=== PATIENT | male | born 1935 | race Caucasian/White ===

== ENCOUNTER 2017-05-10 08:51 | Day surgery (SDC) | payer MEDICARE ==
[~2017-05-10] VITALS: Ht 157.5 cm; Wt 47.6 kg
[~2017-05-10 08:51] MED LIST: ASPIRIN 8181 MG PO; DILANTIN100 MG PO; HYDROCO/APAP1 TA9 PO; METOPROL TAR25 MG PO; MEVACOR40 MG PO; NITROSTAT0.4 MG SL; OMEPRAZOLE10 MG PO
[2017-05-10 10:56] LABS: HEMATOCRIT 40.4 % (39.0-50.0); HEMOGLOBIN 14.1 g/dl (14.0-18.0); IMMATURE GRANULOCYTES 0.6 % (0.0-1.0); MEAN CELL VOLUME 97.8 fL CALC (80.0-100.0); MEAN CORPUSCULAR HGB 34.1 pG CALC (26.0-32.0); MEAN CORPUSCULAR HGB CONC 34.9 g/L CALC (32.0-36.0); NEUT# 5.36 thou/uL (1.82-7.42); RED BLOOD COUNT 4.13 mill/uL (4.70-6.10); RED CELL DISTRI WIDTH 13.5 % (11.5-15.5)
[2017-05-10 11:11] LABS: ALBUMIN 3.9 g/dL (3.2-5.0); ALKALINE PHOSPHATASE 103 u/l (38-126); ANION GAP 11 (6-22 (CALC)); BILIRUBIN, TOTAL 0.6 mg/dL (0.0-1.4); BUN 9 mg/dL (8-23); BUN/CREATININE RATIO 12 (12-20 (CALC)); CALCIUM 9.1 mg/dL (8.4-10.2); CARBON DIOXIDE 31 mmol/l (22-30); CHLORIDE 100 mmol/l (95-108); CREATININE 0.7 mg/dL (0.7-1.3); GFR > 60 ML/MIN (>=60 (CALC)); GFR FOR AFR.AMER. > 60 ML/MIN (>=60 (CALC)); GLUCOSE 89 mg/dL (82-115); POTASSIUM 4.7 mmol/l (3.5-5.1); SGOT/AST 20 u/l (19-48); SGPT/ALT 26 u/l (11-66); SODIUM 138 mmol/l (137-146); TOTAL PROTEIN 6.6 g/dL (6.3-8.2)
[2017-05-10 14:18] VITALS: BP 176/74
== END 2017-05-10 14:00 | disposition home or self-care (01) ==
LOC: ENDO 08:51 → ORM 08:51
PROVIDERS: ATTEND Internal Medicine Gastroenterology
PROC: 0DB68ZX Excision of Stomach, Via Natural or Artificial Opening Endoscopic, Diagnostic (ICD-10-PCS; principal; 2017-05-10)
DX: K21.9 Gastro-esophageal reflux disease without esophagitis (principal); R63.4 Abnormal weight loss; R93.8 Abnormal findings on diagnostic imaging of other specified body structures; K31.7 Polyp of stomach and duodenum; K44.9 Diaphragmatic hernia without obstruction or gangrene; K29.70 Gastritis, unspecified, without bleeding; K31.9 Disease of stomach and duodenum, unspecified; Q40.2 Other specified congenital malformations of stomach; G40.909 Epilepsy, unspecified, not intractable, without status epilepticus; I10 Essential (primary) hypertension

== ENCOUNTER 2017-12-23 11:47 | Emergency (ER) | payer MEDICARE ==
[~2017-12-23] VITALS: Ht 157.5 cm; Wt 48.6 kg
[2017-12-23 12:49] VITALS: BP 156/62
== END 2017-12-23 12:55 | disposition home or self-care (01) ==
LOC: ED 11:47
DX: S10.11XA Abrasion of throat, initial encounter (principal); X58.XXXA Exposure to other specified factors, initial encounter; Y93.89 Activity, other specified; Y92.009 Unspecified place in unspecified non-institutional (private) residence as the place of occurrence of the external cause; F17.210 Nicotine dependence, cigarettes, uncomplicated

== ENCOUNTER 2018-06-01 21:51 | Emergency (ER) | payer MEDICARE ==
[~2018-06-01] VITALS: Ht 157.5 cm; Wt 45.0 kg
[2018-06-01 22:24] LABS: HEMATOCRIT 43.9 % (39.0-50.0); HEMOGLOBIN 14.7 g/dl (14.0-18.0); IMMATURE GRANULOCYTES 0.7 % (0.0-5.0); MEAN CELL VOLUME 99.5 fL CALC (80.0-100.0); MEAN CORPUSCULAR HGB 33.3 pG CALC (26.0-32.0); MEAN CORPUSCULAR HGB CONC 33.5 g/L CALC (32.0-36.0); NEUT# 9.27 thou/uL (1.82-7.42); RED BLOOD COUNT 4.41 mill/uL (4.70-6.10); RED CELL DISTRI WIDTH 13.6 % (11.5-15.5)
[2018-06-01 22:28] LABS: ALBUMIN 4.2 g/dL (3.2-5.0); ALKALINE PHOSPHATASE 99 u/l (38-126); BILIRUBIN, TOTAL 0.3 mg/dL (0.0-1.4); BUN 10 mg/dL (8-23); BUN/CREATININE RATIO 12 (12-20 (CALC)); CARBON DIOXIDE 23 mmol/l (22-30); CHLORIDE 104 mmol/l (95-108); CREATININE 0.8 mg/dL (0.7-1.3); GFR > 60 ML/MIN (>=60 (CALC)); GFR FOR AFR.AMER. > 60 ML/MIN (>=60 (CALC)); SGOT/AST 25 u/l (19-48); SODIUM 143 mmol/l (137-146)
[2018-06-01 22:34] LABS: ANION GAP 20 (6-22 (CALC)); POTASSIUM 3.7 mmol/l (3.5-5.1)
[2018-06-01 22:36] LABS: ACT PARTIAL THROMBO TIME 26.4 SECONDS (20.0-32.5); INTERNATIONAL NORMALIZED RATIO 1.1 RATIO (0.7-1.3); PROTHROMBIN TIME 11.3 SECONDS (9.0-12.5)
[2018-06-01 22:42] LABS: MYOGLOBIN 104 ng/mL (0 - 121)
[2018-06-01 23:31] LABS: URINE BILIRUBIN - DIPSTICK NEGATIVE (NEGATIVE); URINE BLOOD DIPSTICK MODERATE (NEGATIVE); URINE COLOR YELLOW; URINE GLUCOSE - DIPSTICK 100 mg/dL (NEGATIVE); URINE KETONE NEGATIVE (NEGATIVE); URINE LEUK ESTERASE NEGATIVE (NEGATIVE); URINE NITRITE - DIPSTICK NEGATIVE (Negative); URINE PROTEIN - DIPSTICK 30 mg/dL (NEG-TRACE); URINE SPECIFIC GRAVITY 1.025; URINE UROBILINOGEN - DIPSTICK 0.2 E.U./dL (0.2)
[2018-06-01 23:35] LABS: URINE CLARITY CLEAR
[2018-06-01 23:38] LABS: PHENYTOIN (DILANTIN) 5 ug/mL (10 - 20)
[2018-06-01 23:46] LABS: URINE BACTERIA FEW hpf; URINE MUCUS FEW hpf (NONE-FEW); URINE SQUAMOUS EPITHELIAL CELL RARE EPI/hpf (0-FEW)
[2018-06-02 00:05] VITALS: BP 175/67
== END 2018-06-02 00:05 | disposition short-term general hospital (02) ==
LOC: ED 21:51
PROVIDERS: Emergency Medicine
PROC: 0BH17EZ Insertion of Endotracheal Airway into Trachea, Via Natural or Artificial Opening (ICD-10-PCS; principal; 2018-06-01)
DX: G40.909 Epilepsy, unspecified, not intractable, without status epilepticus (principal); J96.90 Respiratory failure, unspecified, unspecified whether with hypoxia or hypercapnia; I10 Essential (primary) hypertension; F17.200 Nicotine dependence, unspecified, uncomplicated
CPT/HCPCS: J1953; J2060

== ENCOUNTER 2019-09-25 16:52 | Observation (INO) | payer MEDICARE ==
[~2019-09-25] VITALS: Ht 152.4 cm; Wt 49.6 kg
--- NOTE | 2019-09-25 16:52 | NUR ---
PT TO ROOM VIA WHEELCHAIR.
--- NOTE | 2019-09-25 18:00 | NUR ---
PT RESTING OFFERS NO NEW COMPLAINTS, FAMILY MEMBER INTERMITTENLY AT BEDSIDE. PT IS ADMITTED SMOKER AND STATES PAIN HAS BEEN SINCE YESTERDAY WITH DEEP INSPIRATION ALSO STATES HE HAS UNEXPLAINED WEIGHT LOSS IN RECENT PAST. COMFORT MEASURES PROVIDED AND CALL ARREDONDO WITHIN REACH
[2019-09-25 18:05] LABS: HEMATOCRIT 40.7 % (39.0-50.0); HEMOGLOBIN 14.1 g/dl (14.0-18.0); IMMATURE GRANULOCYTES 0.8 % (0.0-5.0); MEAN CELL VOLUME 95.3 fL CALC (80.0-100.0); MEAN CORPUSCULAR HGB CONC 34.6 g/L CALC (32.0-36.0); NEUT# 6.12 thou/uL (1.82-7.42); RED BLOOD COUNT 4.27 mill/uL (4.70-6.10); RED CELL DISTRI WIDTH 14.3 % (11.5-15.5)
[2019-09-25 18:24] LABS: ACT PARTIAL THROMBO TIME 28.8 SECONDS (20.0-32.5); INTERNATIONAL NORMALIZED RATIO 1.1 RATIO (0.7-1.3)
[2019-09-25 18:26] LABS: ALBUMIN 4.1 g/dL (3.2-5.0); ALKALINE PHOSPHATASE 109 u/l (38-126); BUN 14 mg/dL (8-23); BUN/CREATININE RATIO 17 (12-20 (CALC)); CHLORIDE 99 mmol/l (95-108); CREATININE 0.8 mg/dL (0.7-1.3); GFR > 60 ML/MIN (>=60 (CALC)); GFR FOR AFR.AMER. > 60 ML/MIN (>=60 (CALC)); POTASSIUM 4.1 mmol/l (3.5-5.1); SGOT/AST 20 u/l (19-48); TOTAL PROTEIN 6.9 g/dL (6.3-8.2)
[2019-09-25 18:31] LABS: ANION GAP 9 (6-22 (CALC)); BILIRUBIN, TOTAL 0.6 mg/dL (0.0-1.4); CARBON DIOXIDE 31 mmol/l (22-30); SODIUM 135 mmol/l (137-146)
--- NOTE | 2019-09-25 18:45 | NUR ---
PT AWARE OF PLANNED ADMISSION
[2019-09-25] MEDS ORDERED: LOPRESSOR 550 MG/TAB PO (19:12)
--- NOTE | 2019-09-25 20:57 | NUR ---
PT STATES HAVING NO CHEST PAIN AT THIS TIME UNLESS HE TAKES A DEEP 8REATH. PT O2 SAT IS 96% ON ROOM AIR. PT STATES FEELING LIKE SOMEONE IS SITTING ON HIS CHEST WHEN HE ARRIVED AND INTERMITTENTLY. PT HAS SINUS 8RADY AT THIS TIME MJohn NOTIFIED.
--- NOTE | 2019-09-25 22:11 | NUR ---
PT ARRIVED TO THE FLOOR VIA STRETCHER ACCOMPANIED BY ED STAFF. PT ALERT AND ORIENTED, PT TRANSFERED FROM STRETCHER TO BED. PT ORIENTED TO ROOM AND CALL [facility]ON[facility] SYSTEM. VITAL SIGNS OBTAINED AND ASSESSMENT COMPLETED. RESPIRATIONS EVEN AND UNLABORED ON RA. LUNGS SOUND DIMINISHED. PEDAL PULSES ARE WEAK. PT DENIES ANY PAIN OR DISCOMFORT AT THIS TIME. TELE IN PLACE. CALL ARREDONDO WITHIN REACH. WILL CONTINUE TO MONITOR.
--- NOTE | 2019-09-25 22:11 | NUR ---
REPORT GIVEN TO MICHELL RN, PT TRANSPORTED TO ROOM 261. PT ADMITTED ALL VS WNL
[2019-09-25 22:30] VITALS: BP 163/64
[2019-09-25 23:37] VITALS: BP 126/68
--- NOTE | 2019-09-26 00:37 | NUR ---
PT RESTING IN BED. RESPIRATIONS EVEN AND UNLABORED ON RA. TELE IN PLACE. WILL CONTINUE TO MONITOR.
[2019-09-26 03:51] VITALS: BP 119/50
--- NOTE | 2019-09-26 03:53 | NUR ---
PT RESTING IN BED RESPIRATIONS EVEN AND UNLABORED ON RA. TELE IN PLACE. WILL CONTINUE TO MONITOR.
[2019-09-26 06:13] LABS: MAGNESIUM 1.6 mg/dL (1.6-2.3)
--- NOTE | 2019-09-26 07:17 | NUR ---
0717-Pt lying in bed with eyes closed. No s/s of distress, denies pain. Pt ready to go home. Bed low and locked. Call light and phone within reach. Pt stable, will continue to monitor.
[2019-09-26 07:47] VITALS: BP 139/54
[2019-09-26 11:02] VITALS: BP 155/68
== END 2019-09-26 13:30 | disposition home or self-care (01) ==
LOC: ED 16:52 → ED-I 18:50 → ED 19:07 → ED-I 19:08 → MS2 19:38
PROVIDERS: Emergency Medicine; ADMIT Internal Medicine; ATTEND Internal Medicine
DX: R07.9 Chest pain, unspecified (principal); I10 Essential (primary) hypertension; I25.10 Atherosclerotic heart disease of native coronary artery without angina pectoris; J44.9 Chronic obstructive pulmonary disease, unspecified; G40.909 Epilepsy, unspecified, not intractable, without status epilepticus; E78.5 Hyperlipidemia, unspecified; F17.210 Nicotine dependence, cigarettes, uncomplicated; I25.2 Old myocardial infarction; Z95.5 Presence of coronary angioplasty implant and graft; Z95.1 Presence of aortocoronary bypass graft; R06.02 Shortness of breath
CPT/HCPCS: G0378

== ENCOUNTER 2019-11-12 18:47 | Inpatient (IN) | payer MEDICARE ==
[~2019-11-12] VITALS: Ht 165.1 cm; Wt 45.0 kg
[~2019-11-12 18:47] MED LIST changes: +LOPRESSOR 550 MG/TAB PO
--- NOTE | 2019-11-12 19:15 | NUR ---
A/OX3 FRAIL M WITH REPORTED WEAKNESS LOSS OF APPETITE,FALLS MORE FREQUENT-
[2019-11-12 19:56] LABS: HEMATOCRIT 38.7 % (39.0-50.0); HEMOGLOBIN 13.6 g/dl (14.0-18.0); IMMATURE GRANULOCYTES 0.7 % (0.0-5.0); MEAN CELL VOLUME 96.5 fL CALC (80.0-100.0); MEAN CORPUSCULAR HGB 33.9 pG CALC (26.0-32.0); MEAN CORPUSCULAR HGB CONC 35.1 g/dL CAL (32.0-36.0); NEUT# 4.4 thou/uL (1.82-7.42); RED BLOOD COUNT 4.01 mill/uL (4.70-6.10); RED CELL DISTRI WIDTH 14.1 % (11.5-15.5)
[2019-11-12 20:42] LABS: ALBUMIN 3.9 g/dL (3.2-5.0); ALKALINE PHOSPHATASE 129 u/l (38-126); ANION GAP 8 (6-22 (CALC)); BILIRUBIN, TOTAL 0.5 mg/dL (0.0-1.4); BUN 13 mg/dL (8-23); BUN/CREATININE RATIO 15 (12-20 (CALC)); CARBON DIOXIDE 31 mmol/l (22-30); CHLORIDE 98 mmol/l (95-108); CREATININE 0.9 mg/dL (0.7-1.3); GFR > 60 ML/MIN (>=60 (CALC)); GFR FOR AFR.AMER. > 60 ML/MIN (>=60 (CALC)); POTASSIUM 4.1 mmol/l (3.5-5.1); SGOT/AST 18 u/l (19-48); SODIUM 133 mmol/l (137-146); TOTAL PROTEIN 6.7 g/dL (6.3-8.2)
--- NOTE | 2019-11-12 20:53 | NUR ---
A/OX3 NO FOCAL DEFOICIS SB NO ECTOPYU NO ST T CHANGES.NO PAIN OF ANY ORIGIN-
--- NOTE | 2019-11-12 21:15 | NUR ---
PT ASKS FOR AAND USES URINAL CLEAR YELLOWW URINE 200CC SPEC TO LAB A/OX3 GCS IS 15 SPEECH IS CLEAR
[2019-11-12 21:31] LABS: URINE BILIRUBIN - DIPSTICK NEGATIVE (NEGATIVE); URINE BLOOD DIPSTICK NEGATIVE (NEGATIVE); URINE COLOR YELLOW; URINE GLUCOSE - DIPSTICK NEGATIVE (NEGATIVE); URINE KETONE NEGATIVE (NEGATIVE); URINE LEUK ESTERASE NEGATIVE (NEGATIVE); URINE NITRITE - DIPSTICK NEGATIVE (Negative); URINE PH 6.5 (4.5-8.0); URINE PROTEIN - DIPSTICK NEGATIVE (NEG-TRACE); URINE UROBILINOGEN - DIPSTICK 0.2 E.U./dL (0.2)
--- NOTE | 2019-11-12 22:00 | NUR ---
A/X3 SPEECH CLEAR GCS 15 NO FOCAL DEFICITS W/P/D SKIN SB THIS ER VISIT DENIES PAIN OF ANY ORIGIN
--- NOTE | 2019-11-12 22:01 | NUR ---
PHONE REPORT KULWINDER DENIS ON [facility]
--- NOTE | 2019-11-12 22:04 | NUR ---
PT TRAANSPORTED TO [facility] RM 262 VIA STRETCHER IN STABLE CONDITION
--- NOTE | 2019-11-12 22:05 | NUR ---
PT RECEIVED FROM E.R VIA STRETCHER ACCOMPANIED BY STAFF. ASSISTED IN TO BED. GAIT IS STEADY WITH ONE ASSIST. PT IS ALERT AND ORIENTED X3. SKIN WARM AND DRY. FEW SCABBED AREAS NOTED ON LEFT HAND. SKIN INTACT. DISCOLORATION NOTED TO BILAT FOREARM AND HANDS. RESP EVEN AND UNLABORED. O2 N/C ON AT 2L. LUNGS REVEAL DIMINISHED BREATH SOUNDS PRESENT. ABD SOFT WITH BOWEL SOUNDS PRESENT. NO LOWER EXT EDEMA NOTED. PEDAL PULSES PALPATED BILAT. ELLEN HOSE APPLIED. HEPLOCK IS PATENT IN LAC. PT DENEIS ANY PAIN OR DISCOMFORT. URINAL AT BEDSIDE. PT ORIENTED TO ROOM AND CALL ARREDONDO. BED ALARM IS ON FOR PTS SAFETY. FREQUENT ROUNDS MADE. CALL ARREDONDO WITHIN REACH.
[2019-11-12 22:10] VITALS: BP 169/71
[2019-11-13 03:43] VITALS: BP 114/61
--- NOTE | 2019-11-13 04:23 | NUR ---
RESTING IN BED WITH EYES CLOSED. VSS. RESP EVEN AND UNLABORED. HEPLOCK IS PATENT. BED ALARM IS ON. URINAL AT BEDSIDE. FREQUENT ROUNDS MADE. CALL ARREDONDO WITHIN REACH .
--- NOTE | 2019-11-13 05:32 | NUR ---
RESTING IN BED WITH EYES CLOSED. NO DISTRESS NOTED . CALL ARREDONDO WITHIN REACH.
[2019-11-13 08:00] VITALS: BP 134/77
--- NOTE | 2019-11-13 09:00 | NUR ---
PT AWAKE, ALERT, ORIENTED X 3. LUNGS CLEAR, RA. PT STATES THAT HE IS WEAK, THAT EVERYONE SAYS IT IS RELATED TO NUTRITION. PT AWARE OF PHYSICAL THERAPY CONSULT.
--- NOTE | 2019-11-13 12:00 | NUR ---
PT SEEN BY DR OLIVA THIS MORNING, PHYSICAL THERAPY ORDERED. PT STATES THAT HE USES A WALKER AT HOME. NO CHANGE IN STATUS.
[2019-11-13 15:23] VITALS: BP 132/68
--- NOTE | 2019-11-13 17:28 | NUR ---
PHYSICAL THERAPY HAS BEEN IN ROOM TO ASSESS PT. PT REMAINS AT REST IN THE BED, NO DISTRESS.
--- NOTE | 2019-11-13 19:10 | NUR ---
REPORT FROM JASON CONTRERAS. PT SITTING UP IN BED. NO APPARENT DISTRESS NOTED. PT DENIES ANY PAIN OR DISCOMFORT. IV SITE APPEARS HEALTHY. PT HAS NO CURRENT WANTS OR NEEDS. CALL LIGHT WITHIN REACH. WILL CONTINUE TO MONITOR.
[2019-11-13 19:48] VITALS: BP 124/66
--- NOTE | 2019-11-13 22:47 | NUR ---
PT RESTING IN BED WITH EYES CLOSED. NO APPARENT DISTRESS NOTED. CALL LIGHT WITHIN REACH. WILL CONTINUE TO MONITOR.
--- NOTE | 2019-11-14 02:12 | NUR ---
PT RESTING IN BED WITH EYES CLOSED. NO APPARENT DISTRESS NOTED. CALL LIGHT WITHIN REACH. WILL CONTINUE TO MONITOR.
[2019-11-14 03:35] VITALS: BP 146/60
[2019-11-14 07:23] VITALS: BP 123/57
--- NOTE | 2019-11-14 09:00 | NUR ---
PT SEEN AWAKE, ALERT, ORIENTED X 3. PT DENIES PAIN OR DISTRESS. NO BM FOR 3 DAYS, TO CHECK ABOUT LAXATIVE. LUNGS WITH CRACKLES TO LOWER LEFT, OTHERWISE DIMINISHED, RA.
--- NOTE | 2019-11-14 13:00 | NUR ---
PT REMAINS BEFORE, NO DISTRESS, NO COMPLAINTS. PT SEEN BY DR GARCIA TODAY.
[2019-11-14 16:00] VITALS: BP 152/75
--- NOTE | 2019-11-14 16:03 | NUR ---
PT AT REST IN THE BED, NO DISTRESS, NO COMPLAINTS.
[2019-11-14 19:16] VITALS: BP 138/62
--- NOTE | 2019-11-14 23:40 | NUR ---
PT RESTING IN BED WITH EYES CLOSED. NO APPARENT DISTRESS NOTED. CALL LIGHT WITHIN REACH. WILL CONTINUE TO MONITOR.
[2019-11-15] VITALS: BP 116/66
--- NOTE | 2019-11-15 03:25 | NUR ---
PT RESTING IN BED WITH EYES CLOSED. NO APPARENT DISTRESS NOTED. CALL LIGHT WITHIN REACH. WILL CONTINUE TO MONITOR.
[2019-11-15 04:05] VITALS: BP 122/60
[2019-11-15 07:39] VITALS: BP 150/72
--- NOTE | 2019-11-15 08:38 | NUR ---
PT AWAKE, ALERT, ORIENTED X 3. LUNGS CLEAR THIS MORNING, RA. BM LAST NIGHT AFTER MIRALAX GIVEN YESTERDAY. NO DISTRESS, HOPES FOR DISCHARGE THIS AM.
[2019-11-15 08:44] VITALS: BP 150/72
[2019-11-15 10:58] LABS: HEMATOCRIT 41.4 % (39.0-50.0); HEMOGLOBIN 14.2 g/dl (14.0-18.0); IMMATURE GRANULOCYTES 0.9 % (0.0-5.0); MEAN CORPUSCULAR HGB 33.3 pG CALC (26.0-32.0); MEAN CORPUSCULAR HGB CONC 34.3 g/dL CAL (32.0-36.0); NEUT# 4.45 thou/uL (1.82-7.42); RED BLOOD COUNT 4.27 mill/uL (4.70-6.10); RED CELL DISTRI WIDTH 13.7 % (11.5-15.5)
[2019-11-15 11:20] LABS: ANION GAP 10 (6-22 (CALC)); BUN 18 mg/dL (8-23); BUN/CREATININE RATIO 20 (12-20 (CALC)); CARBON DIOXIDE 30 mmol/l (22-30); CHLORIDE 100 mmol/l (95-108); CREATININE 0.9 mg/dL (0.7-1.3); GFR > 60 ML/MIN (>=60 (CALC)); GFR FOR AFR.AMER. > 60 ML/MIN (>=60 (CALC)); SODIUM 136 mmol/l (137-146)
[2019-11-15] MEDS ORDERED: MIRTAZAPINE15 MG PO (12:38)
[2019-11-15] MEDS ORDERED: B121000 MCG PO (12:53)
--- NOTE | 2019-11-15 13:15 | NUR ---
PT HAS BEEN DISCHARGED TO HOME WITH HOME HEALTH/PHYSICAL THERAPY. PT VERBALIZED UNDERSTANDING OF DC INSTRUCTIONS, WAS PROVIDED WITH RXs X 2 AND COPY OF HOME HEALTH ORDER. PT WILL BE TAKEN TO LOBBY VIA WHEELCHAIR WHEN HIS ARRIVES. PT IN STABLE CONDITION.
== END 2019-11-15 13:50 | DRG 641 ==
LOC: ED 18:47 → ED-I 20:31 → ED 20:44 → MS2 20:45
PROVIDERS: Emergency Medicine; Nurse Practitioner Family; ADMIT Internal Medicine; ATTEND Internal Medicine
DX: E43 Unspecified severe protein-calorie malnutrition (principal); Z68.1 Body mass index [BMI] 19.9 or less, adult; E53.8 Deficiency of other specified B group vitamins; M62.50 Muscle wasting and atrophy, not elsewhere classified, unspecified site; I10 Essential (primary) hypertension; J44.9 Chronic obstructive pulmonary disease, unspecified; K59.00 Constipation, unspecified; I25.10 Atherosclerotic heart disease of native coronary artery without angina pectoris; G40.909 Epilepsy, unspecified, not intractable, without status epilepticus; E78.5 Hyperlipidemia, unspecified; M21.371 Foot drop, right foot; F17.200 Nicotine dependence, unspecified, uncomplicated; Z91.81 History of falling; Z95.1 Presence of aortocoronary bypass graft
CPT/HCPCS: J3420

== ENCOUNTER 2020-01-06 09:05 | Emergency (ER) | payer MEDICARE ==
[~2020-01-06] VITALS: Ht 165.1 cm; Wt 42.0 kg
[~2020-01-06 09:05] MED LIST changes: +B121000 MCG PO; +MIRTAZAPINE15 MG PO
[2020-01-06 09:49] LABS: HEMOGLOBIN 12.5 g/dl (14.0-18.0); IMMATURE GRANULOCYTES 0.7 % (0.0-5.0); MEAN CELL VOLUME 94.4 fL CALC (80.0-100.0); MEAN CORPUSCULAR HGB 33.3 pG CALC (26.0-32.0); MEAN CORPUSCULAR HGB CONC 35.3 g/dL CAL (32.0-36.0); NEUT# 8.4 thou/uL (1.82-7.42); RED BLOOD COUNT 3.75 mill/uL (4.70-6.10); RED CELL DISTRI WIDTH 13.2 % (11.5-15.5)
[2020-01-06 09:50] LABS: HEMATOCRIT 35.4 % (39.0-50.0)
[2020-01-06 10:08] LABS: ALBUMIN 3.9 g/dL (3.2-5.0); ALKALINE PHOSPHATASE 150 u/l (38-126); ANION GAP 12 (6-22 (CALC)); BUN 14 mg/dL (8-23); BUN/CREATININE RATIO 20 (12-20 (CALC)); CARBON DIOXIDE 25 mmol/l (22-30); CHLORIDE 102 mmol/l (95-108); CREATININE 0.7 mg/dL (0.7-1.3); GFR > 60 ML/MIN (>=60 (CALC)); GFR FOR AFR.AMER. > 60 ML/MIN (>=60 (CALC)); POTASSIUM 3.5 mmol/l (3.5-5.1); SGOT/AST 24 u/l (19-48); SODIUM 135 mmol/l (137-146); TOTAL PROTEIN 6.7 g/dL (6.3-8.2)
[2020-01-06 10:19] LABS: BILIRUBIN, TOTAL 0.9 mg/dL (0.0-1.4)
[2020-01-06 12:00] VITALS: BP 150/52
[2020-01-06] MEDS ORDERED: NEXIUM40 M1 PO (12:07)
== END 2020-01-06 12:00 ==
LOC: ED 09:05
PROVIDERS: Family Medicine
DX: S72.012A Unspecified intracapsular fracture of left femur, initial encounter for closed fracture (principal); R55 Syncope and collapse; I10 Essential (primary) hypertension; W19.XXXA Unspecified fall, initial encounter; Y92.009 Unspecified place in unspecified non-institutional (private) residence as the place of occurrence of the external cause; R94.31 Abnormal electrocardiogram [ECG] [EKG]